=== PATIENT | female | born 1945 | race Caucasian/White ===

== ENCOUNTER 2022-04-12 15:03 | Emergency (ER) | payer MEDICARE, OTHER ==
[2022-04-12 17:06] LABS: BASOPHIL 0.5 % (0-2); EOSINOPHIL 1.7 % (0-7); HCT 44.9 % (37.0-47.0); HGB 14.8 g/dl (12.5-16.0); LYMPHOCYTE 28.7 % (15-48); MCH 29.7 pg (25.0-31.0); MCV 90.2 fL (78.0-100.0); MONOCYTE 6.6 % (0-12); MPV 12.4 fL (6.0-9.5); NEUTROPHIL 62.3 % (41-80); NRBC 0; PLT 208 K/uL (150-400); RBC 4.98 M/uL (4.20-5.40); RDW 16.1 % (11.5-14.0)
[2022-04-12 17:40] LABS: BUN/CREAT RATIO (CALC) 18.6 RATIO; CREATININE 1.02 mg/dL (0.51-0.95); POTASSIUM 4.1 mmol/L (3.5-5.1)
== END 2022-04-12 19:02 | disposition home or self-care (01) ==
LOC: FER 15:03
PROVIDERS: Nurse Practitioner Family
DX: I49.3 Ventricular premature depolarization (principal); I10 Essential (primary) hypertension; Z79.899 Other long term (current) drug therapy
CPT/HCPCS: 36415; 71045; 80048; 84484; 85025; 93005